=== PATIENT | male | born 1965 | race Caucasian/White ===

== ENCOUNTER 2024-08-12 10:08 | Outpatient (CLI) | payer BC | END 2024-08-12 10:09 | disposition home or self-care (01) | LOC: CSHCT 10:08 | PROVIDERS: ATTEND Family Medicine | DX: R10.12 Left upper quadrant pain (principal); K63.9 Disease of intestine, unspecified | CPT/HCPCS: 74177 ==

== ENCOUNTER 2025-09-07 17:15 | Emergency (ER) | payer BC ==
[2025-09-07 17:50] LABS: #Basophils 0.04 10x3/uL (0.0-0.2); #Eosinophils 0.03 10x3/uL (0.0-0.5); #Monocytes 0.71 10x3/uL (0.0-1.1); #Neutrophils 4.35 10x3/uL (1.5-8.4); %Basophils 0.6 % (0.0-2.0); %Eosinophils 0.5 % (0.0-6.0); %Lymphocytes 16.7 % (18.0-47.0); %Monocytes 11.5 % (0.0-10.0); %Neutrophils 70.5 % (40.0-75.0); Hematocrit 39.9 % (38.8-50.0); Hemoglobin 14.4 g/dL (13.5-17.5); Mean Corpuscular Hemoglobin 34.4 pg (27.0-33.0); Mean Corpuscular Volume 95.2 fL (81.2-95.1); Platelet Count 206 10x3/uL (150-450); Red Blood Cell (RBC) Count 4.19 10x6/uL (4.32-5.72); White Blood Cell (WBC) Count 6.17 10x3/uL (3.5-10.5)
[2025-09-07 18:09] LABS: ALT (SGPT) 23 U/L (Less than 45); AST (SGOT) 31 U/L (11-34); Albumin 4.2 g/dL (3.1-4.5); Alkaline Phosphatase 72 U/L (40-110); Anion Gap 15 mmol/L (10-20); BUN (Urea Nitrogen) 14 mg/dL (8.4-25.7); Bilirubin, Total 0.6 mg/dL (0.3-1.2); Calc. Creatinine Clearance 0 mL/min (70-130); Calcium 9.0 mg/dL (7.8-10.44); Carbon Dioxide 22 mmol/L (22-29); Chloride 105 mmol/L (98-107); Globulin 2.6 g/dL (2.4-3.5); Glucose 101 mg/dL (70-105); Potassium 4.1 mmol/L (3.5-5.1); Sodium 138 mmol/L (136-145)
[2025-09-07 18:14] LABS: Troponin I Less than 0.010 ng/mL (< 0.028)
[2025-09-07] MEDS ORDERED: Acetaminophen 500 MG TAB ONE (19:10)
[2025-09-07 22:03] LABS: Troponin I Less than 0.010 ng/mL (< 0.028)
== END 2025-09-07 22:48 | disposition home or self-care (01) ==
LOC: CSHERS 17:15
DX: R07.89 Other chest pain (principal); E78.00 Pure hypercholesterolemia, unspecified; Z55.6 Problems related to health literacy; F17.220 Nicotine dependence, chewing tobacco, uncomplicated; Z79.899 Other long term (current) drug therapy
CPT/HCPCS: 36415; 71045; 80053; 83880; 84484; 85025; 85379; 93005; 94760